=== PATIENT | female | born 1990 | race Caucasian/White ===

== ENCOUNTER 2022-11-15 13:12 | Emergency (ER) | payer MEDICAID ==
[~2022-11-15] VITALS: Ht 154.9 cm; Wt 57.6 kg
[2022-11-15 13:13] VITALS: BP 116/81
== END 2022-11-15 14:50 | disposition home or self-care (01) ==
LOC: ER 13:13
DX: M25.531 Pain in right wrist (principal)
CPT/HCPCS: 29125; 73110; 99283